=== PATIENT | female | born 1960 | race Caucasian/White ===

== ENCOUNTER 2022-10-13 10:33 | Outpatient (CLI) | payer BC | END 2022-10-13 10:34 | disposition home or self-care (01) | LOC: CSHCT 10:33 | PROVIDERS: ATTEND Internal Medicine | DX: Z12.2 Encounter for screening for malignant neoplasm of respiratory organs (principal); F17.218 Nicotine dependence, cigarettes, with other nicotine-induced disorders | CPT/HCPCS: 71271 ==